=== PATIENT | male | born 1985 | race Caucasian/White ===

== ENCOUNTER 2017-04-11 14:41 | Outpatient (CLI) | payer BC | END 2017-04-11 14:42 | disposition home or self-care (01) | LOC: BICULT 14:41 | PROVIDERS: ATTEND Urology | DX: N43.3 Hydrocele, unspecified (principal) | CPT/HCPCS: 76870; 93976 ==

== ENCOUNTER 2017-04-13 09:12 | Outpatient (CLI) | payer BC ==
--- NOTE | 2017-04-13 10:29 | RAD ---
SUPINE ABDOMEN: Date: 04/13/17 HISTORY: Renal stone. FINDINGS: No evidence of urinary tract calculus identified. The bowel gas pattern is unremarkable. Radiopaque s uture overlies the right upper quadrant. IMPRESSION: No urinary tract calcification identified. POS: SONYA
== END 2017-04-13 09:13 | disposition home or self-care (01) ==
LOC: RAD 09:12
PROVIDERS: ATTEND Urology
DX: Z87.442 Personal history of urinary calculi (principal)
CPT/HCPCS: 74018

== ENCOUNTER 2017-05-17 09:46 | Outpatient (CLI) | payer BC | END 2017-05-17 09:47 | disposition home or self-care (01) | LOC: LABBT 09:46 | PROVIDERS: ATTEND Urology | DX: Z01.818 Encounter for other preprocedural examination (principal); N43.3 Hydrocele, unspecified ==

== ENCOUNTER 2017-05-22 12:39 | Day surgery (SDC) | payer BC ==
[2017-05-17 10:16] VITALS: BMI 35.5
[2017-05-22] MEDS ORDERED: CEFAZOLIN/Water 2 GM/20 ML SYRINGE ONE (13:01)
[2017-05-22] MEDS ORDERED: Ketorolac Tromethamine 30 MG/ML VIAL ONE (14:55)
[2017-05-22] MEDS ORDERED: Dexamethasone 20 MG/5 ML VIAL ONE (14:55)
[2017-05-22] MEDS ORDERED: diphenhydrAMINE 50 MG/ML VIAL ONE (14:55)
[2017-05-22] MEDS ORDERED: Ondansetron HCl/PF 4 MG/2 ML Vial ONE (14:55)
[2017-05-22] MEDS ORDERED: Lidocaine 1% PF 5 ML VIAL ONE (14:55)
[2017-05-22] MEDS ORDERED: Propofol 200 MG/20 ML VIAL ONE (14:55)
[2017-05-22] MEDS ORDERED: Bupivacaine 0.25% HCL 30 ML VIAL ONE (15:48)
[2017-05-22] MEDS ORDERED: Bacitracin Zinc Ointment 30 gm TUBE ONE (15:48)
[2017-05-22] MEDS ORDERED: Lidocaine 1% (PF) 30 ML VIAL ONE (15:48)
[2017-05-22] MEDS ORDERED: Midazolam HCl 2 mg/2 ml Vial ONE (16:01)
[2017-05-22] MEDS ORDERED: Fentanyl 250 MCG/5 ML VIAL ONE (16:04)
[2017-05-22] MEDS ORDERED: HYDROcodone/Acetaminophen 5/325 mg Tablet ONE (18:36)
--- NOTE | 2017-05-22 19:54 | OP ---
DATE OF PROCEDURE: 05/22/2017 PREOPERATIVE DIAGNOSIS: Right hydrocele. POSTOPERATIVE DIAGNOSIS: Right hydrocele. PROCEDURE: Right hydrocelectomy. SURGEON: Tiffany Beckham MD. ANESTHESIA: General with laryngeal mask airway as well as local anesthetic. SPECIMENS: None. COMPLICATIONS: None. DRAIN: Remaining Hanna. ESTIMATED BLOOD LOSS: Minimal blood loss. INDICATIONS: The patient is a 32-year-old male who is followed in the office for right hydrocele and elected for definitive repair. DESCRIPTION OF PROCEDURE: He was set up in spine and prepped and draped in sterile fashion. Then wi an elevation of the right hemiscrotum, an incision was made down to the tunica and then blunt diss ection occurred in order to be able to deliver the hydrocele sac and testicle from the scrotum itself . Then, the sac was opened sharply and approximately 100 mL of fluid was returned in addition to cayetano t which filled. Then, the hydrocele sac was opened up and inverted in bottleneck fashion; however, t here was significant thickening of the tunica and adherence to the epididymal portion. Therefore, it was not fully inverted as that would be too tight given the lack of extra hydrocele sac, so once thi s was inverted for approximately 3 cm then the stitch was carried down one side for hemostatic purpos es and then started again on the other side using 0 Vicryl. A small epididymal testicular appendage was removed via Bovie and then the cord and testicle were inspected for hemostasis and then returned to the scrotum itself. Hemostasis was insured on the dartos layer and then copious amounts of irriga tion was used. A [place] drain was then placed in the inferior portion of the scrotum and secured wi a nylon suture. Then, the dartos was closed with 2-0 Vicryl in running fashion and the skin was r eapproximated in running fashion using alternating simple and horizontal mattress sutures. Bacitraci n and sterile fluffs and a scrotal support were then applied. The patient was then awakened and hewitt sferred to the PACU in stable condition. Marcaine had been was used with the beginning and end of e case approximately 10 mL were injected slowly.
== END 2017-05-22 19:30 | disposition home or self-care (01) ==
LOC: SDC 12:39
PROVIDERS: ATTEND Urology
PROC: 0VB70ZZ Excision of Left Tunica Vaginalis, Open Approach (ICD-10-PCS; principal; 2017-05-22)
DX: N43.3 Hydrocele, unspecified (principal); K50.90 Crohn's disease, unspecified, without complications; Z79.4 Long term (current) use of insulin; Z79.899 Other long term (current) drug therapy
CPT/HCPCS: J1100; J1200; J1885; J2001; J2250; J2405; J2704; J3010; S0020

== ENCOUNTER 2018-05-03 12:50 | Outpatient (CLI) | payer BC ==
--- NOTE | 2018-05-03 15:01 | RAD ---
ABDOMEN ONE VIEW: HISTORY: Renal stone. Followup. COMPARISON: 04/13/2017 FINDINGS: The visualized bowel gas pattern is nonspecific. The superior pole, right kidney, is obscured by bow el content. A tiny hyperdensity is noted over the inferior pole right kidney but is very nonspecific . It could represent a small right renal calculus or bowel contents. No urinary tract calcification s are otherwise demonstrated. A metallic clip overlies the right lower quadrant of the abdomen. IMPRESSION: 1. Possible tiny right inferior pole renal calculus. 2. Nonspecific bowel gas pattern. POS: SONYA
== END 2018-05-03 12:51 | disposition home or self-care (01) ==
LOC: SCSRAD 12:50
PROVIDERS: ATTEND Urology
DX: Z87.442 Personal history of urinary calculi (principal)
CPT/HCPCS: 74018

== ENCOUNTER 2018-07-04 18:10 | Outpatient (CLI) | payer BC | END 2018-07-04 18:11 | disposition home or self-care (01) | LOC: SCSRAD 18:10 | PROVIDERS: ATTEND Urology | DX: N20.0 Calculus of kidney (principal); Z98.890 Other specified postprocedural states | CPT/HCPCS: 74018 ==